=== PATIENT | female | born 1980 | race Caucasian/White ===

== ENCOUNTER → 2020-03-26 | Emergency (ER) | payer MEDICAID ==
[~2020-03-26] VITALS: Ht 160 cm; Wt 58.1 kg
[~2020-03-26] MED LIST: ALPRAZOLAM1 MG ORAL; BACTRIM DS TAB1 EAC1 ORAL; SUBOXONE 8 MG-1 EAC2 SL
--- NOTE | 2020-03-26 00:12 | NUR ---
ED Nurse Note: Pt came to ED from home. Pt stated she feels she got bit by a bug. She states her left upper leg renee and itches. Redness of about 2 inches seen on left upper leg. Warmth upon palpation. No SOB or acute distress. Vitals stable.
[2020-03-26 00:23] VITALS: BP 126/75
--- NOTE | 2020-03-26 00:26 | Emergency Room Report ---
History of Present Illness General Chief Complaint: Skin Rash/Abscess Source: Patient Present Illness HPI Disclaimer: Please note that this report is being documented using DRAGON technology. This can lead to erroneous entry secondary to incorrect interpretation by the dictating instrument. HPI: 39-year-old female presents for evaluation suspected spider bite. 2 nights ago the patient killed the spider in her room and then felt a burning sensation over the posterior aspect of the left thigh. Noted progressive redness and a small bump. No drainage. No skin breakdown. Does not inject any medications. Tetanus updated 2 days ago. Denies fever or chills. No other complaints at this time. PMH: Prior substance abuse, anxiety PSH: Reviewed Allergies: Denied Social Hx: Prior substance abuse Allergies: Coded Allergies: No Known Allergies (Unverified , 03/26/20) COVID-19 Screening Contact w/high risk pt: No Experienced COVID-19 symptoms?: No COVID-19 Testing performed BAKERY PRODUCTS CHECKER: No Patient History Last Menstrual Period: 03/18/20 Nursing Documentation-PMH Past Medical History: No History, Except For Hx Pacemaker: Yes Review of Systems All Other Systems: negative except mentioned in HPI Physical Exam Vital Signs Date Time Temp Pulse Resp B/P (MAP) Pulse Ox O2 Delivery O2 Flow Rate FiO2 03/26/20 00:07 98.2 70 18 139/67 (91) 95 Room Air General: Awake and alert, no acute distress HEENT: NC/AT. EOMI. Resp: Normal work of breathing Skin: Intact. There is a 3 x 3 cm area of erythema and 1 x 1 cm induration without fluctuance over the center. This is located over the posterior lateral aspect of the left thigh. No bleeding or skin breakdown. No ulcerations. Possible bite hugo over the center. MSK: Normal tone and bulk. Moving all extremities. No obvious deformity. Neuro: Awake and alert. Mentating appropriately Medical Decision Making Diagnostic Impression: Primary Impression: Abscess ER Course 39-year-old female presents for evaluation of redness and swelling of the left thigh. Bedside ultrasound shows a 0.7 x 0.7 cm superficial fluid collection just below the surface. Consistent with abscess. This fluid was aspirated using an 18-gauge needle. Chlorhexidine was used for sterilization patient tolerated procedure well. Approximately 1 cc of purulent material expressed. Sterile bandage applied. No significant bleeding and no complications. Will start patient on Bactrim. Tetanus updated 2 years ago. Stable for outpatient follow- up peer instructed to return new or worsening symptoms. She understands and agrees with this treatment plan. Diagnostic POCUS Bedside Ultrasound Diagnostics: Bedside US Exam performed: Soft Tissue Limited Indication: Abcess/Cellulitis Number of Views: Limited Interpreted by Emergency Physi: Yes Soft Tissue Limited Findings: No foreign body, Other - Abscess, cellulitis, mild cobblestoning Impression: Abscess, Cellulitis Electronically Signed by: Electronically signed by Dr. Talha Hoang MD Last Vital Signs Date Time Temp Pulse Resp B/P (MAP) Pulse Ox O2 Delivery O2 Flow Rate FiO2 03/26/20 00:07 98.2 70 18 139/67 (91) 95 Room Air Disposition: HOME, SELF-CARE Condition: Stable Scripts Trimethoprim/Sulfamethoxazole 160/800* (BACTRIM DS TABLET*) 1 Each Tablet 1 TAB ORAL Q12H for 7 Days, #14 TAB 0 Refills Prov: Talha Hoang MD 03/26/20 Referrals: [facility]. [facility] Patient Instructions: Abscess Additional Instructions: Please follow-up with your primary care doctor in the next 1 to 3 days to discuss this emergency department visit and for reevaluation. If you have any new or worsening symptoms please return to the emergency department for reevaluation. Please note that this report is being documented using Qwilt technology. This can lead to erroneous entry secondary to incorrect interpretation by the dictating instrument. Talha Hoang MD Mar 26, 2020 00:25
--- NOTE | 2020-03-26 00:32 | NUR ---
ER DISCHARGE NOTE: Patient is cleared to be discharged per ERMD, pt is aox4, on room air, with stable vital signs. pt was given dc and prescription instructions, pt was able to verbalize understanding, pt id band removed without complications. pt is able to ambulate with steady gait. pt took all belongings.
== END | disposition home or self-care (01) ==
LOC: EMR 00:29
DX: L02.416 Cutaneous abscess of left lower limb (principal); Z95.0 Presence of cardiac pacemaker
CPT/HCPCS: 99282

== ENCOUNTER 2020-03-29 02:21 | Emergency (ER) | payer MEDICAID ==
[~2020-03-29] VITALS: Ht 160 cm; Wt 59.0 kg
--- NOTE | 2020-03-29 02:37 | NUR ---
ED Nurse Note: Patient walked into the ED with c/o spider bite onset 03/25/20. Pt was bitten at left upper leg. Pt was seen here and was treated 03/26 and pt reports she was compliant with bactrim but reports the bite is getting worse and now radiates to the whole upper thigh and groin, pt also c/o vomiting today. Doctor is seeing pt at this time.
[2020-03-29] MEDS ORDERED: DOXYCYCLINE MO100 MG ORAL (02:55)
[2020-03-29] MEDS ORDERED: ZOFRAN ODT8 MG ORAL (02:55)
[2020-03-29] MEDS ORDERED: HYDROCODON-ACE1 EA16 ORAL (02:55)
--- NOTE | 2020-03-29 02:55 | NUR ---
ED Nurse Note: Abscess I&D done by Dr. Damon. Wound cleaned with sterile saline and gauze, covered with guaze and secured with tape. Pt tolerated procedure well. Reports some of the pressure has eased. Rates pain 5/10.
--- NOTE | 2020-03-29 03:00 | Emergency Room Report ---
History of Present Illness General Chief Complaint: Animal Bite Source: Patient Present Illness HPI 39-year-old female here with left thigh abscess. Patient was here several days ago for same complaint. She had needle aspiration performed and was given a prescription for Bactrim. Said that she had only taken a few of the Bactrim intermittently "because they made me nauseous and throw up." Says that the ab scess has gotten slightly bigger and the pain is persisted. Denies fevers, chills, chest pain, palpitation, shortness of breath, back pain, abdominal pain, diarrhea, dysuria, IV drug use. Allergies: Coded Allergies: No Known Allergies (Unverified , 03/26/20) COVID-19 Screening Contact w/high risk pt: No Experienced COVID-19 symptoms?: No COVID-19 Testing performed MOLD DESIGN ENGINEER: No Patient History Now: No Nursing Documentation-H Hx Pacemaker: Yes Hx Asthma: Yes Review of Systems All Other Systems: negative except mentioned in HPI Physical Exam Vital Signs Date Time Temp Pulse Resp B/P (MAP) Pulse Ox O2 Delivery O2 Flow Rate FiO2 03/29/20 02:25 98.4 92 20 131/84 (100) 98 Room Air Sp02 EP Interpretation: reviewed, normal General Appearance: no apparent distress, alert, non-toxic Head: normocephalic, atraumatic Eyes: bilateral eye normal inspection, bilateral eye PERRL ENT: hearing grossly normal, normal pharynx, no angioedema, normal voice Neck: full range of motion, supple/symm/no masses Respiratory: chest non-tender, lungs clear, normal breath sounds, speaking full sentences Cardiovascular #1: regular rate, rhythm, no edema Cardiovascular #2: 2+ carotid (R), 2+ carotid (L), 2+ radial (R), 2+ radial (L), 2+ dorsalis pedis (R), 2+ dorsalis pedis (L) Gastrointestinal: normal bowel sounds, non tender, soft, non-distended, no guarding, no rebound Rectal: deferred Genitourinary: normal inspection, no CVA tenderness Musculoskeletal: back normal, normal range of motion, gait/station normal, non- tender Neurologic: alert, motor strength/tone normal, oriented x3, sensory intact, responsive, speech normal Psychiatric: judgement/insight normal, memory normal, mood/affect normal, no suicidal/homicidal ideation Skin: other - 2 cm abscess left lateral thigh. Approximately 3 cm region of erythema spreading from the abscess Lymphatic: no adenopathy Procedures Incision and Drainage Incision and Drainage : Consent: Verbal Blade Size: 11 I & D Procedure: betadine prep Wound Location: other - Left thigh Wound's Depth, Shape: superficial Wound Explored: clean Anesthesia: Lidocaine w/ Epi Splint Applied?: No Sling Applied?: No Patient Tolerated: Well Complications: None Medical Decision Making Diagnostic Impression: Primary Impression: Abscess ER Course 39-year-old female here with left thigh abscess. Patient also said that the pain has worsened and she has not been compliant with the Bactrim "because it makes me throw up." Incision and drainage was performed as described above. Large amount of purulent fluid was drained. Patient felt immediate relief. Was given prescription for Zofran and antibiotic changed to doxycycline which the patient says that she has taken before and was able to tolerate very well. Patient was also requesting stronger pain medication. She has been taking Tylenol and ibuprofen without any relief. Patient does have a history of opioid dependence and is currently on Suboxone but says "I can take [place] only if you get me prescription for a few pills." Patient was given prescription for [place] 7 tabs only. Was told to return with worsening infection. She expressed understanding and was discharged. ddx: lymphadenopathy/lymphangitis, sebaceous/ganglion cyst, abscess, cellulitis, tumor, insect bite, substance abuse, folliculitis Last Vital Signs Date Time Temp Pulse Resp B/P (MAP) Pulse Ox O2 Delivery O2 Flow Rate FiO2 03/29/20 02:25 98.4 92 20 131/84 (100) 98 Room Air Disposition: HOME, SELF-CARE Condition: Stable Scripts Ondansetron Odt* (ZOFRAN ODT*) 8 Mg Tab.rapdis 8 MG ORAL Q6H PRN for Nausea & Vomiting, #12 TAB Prov: Harsh Damon M.D. 03/29/20 Hydrocodone/Acetaminophen 7.5-325* (HYDROCODON-ACETAMINOPH 7.5-325*) 1 Each Tablet 1 TAB ORAL Q4H, #7 TAB 0 Refills Prov: Harsh Damon M.D. 03/29/20 Doxycycline Monohydrate* (DOXYCYCLINE MONOHYDRATE*) 100 Mg Capsule 100 MG ORAL Q12H, #14 CAP 0 Refills Prov: Harsh Damon M.D. 03/29/20 Referrals: [facility] Patient Instructions: Harsh Quintanilla M.D. Mar 29, 2020 03:00
[2020-03-29 03:15] VITALS: BP 131/84
== END 2020-03-29 03:10 | disposition home or self-care (01) ==
LOC: EMR 02:58
DX: L02.416 Cutaneous abscess of left lower limb (principal); J45.909 Unspecified asthma, uncomplicated; F11.21 Opioid dependence, in remission; Z95.0 Presence of cardiac pacemaker
CPT/HCPCS: 10060; Z7502; 99282